=== PATIENT | male | born 1945 ===

== ENCOUNTER 2017-11-23 11:31 | Inpatient (IN) | payer MEDICARE ==
[2017-11-23 11:43] VITALS: BMI 30.9
--- NOTE | 2017-11-23 12:07 | ED PDOC ---
HPI: Abdomen Time Seen by Provider: 11/23/17 11:50 Chief Complaint (Nursing): Abdominal Pain History Per: Patient Onset/Duration Of Symptoms: Days (4) Current Symptoms Are (Timing): Still Present Severity: Moderate Location Of Pain/Discomfort: LLQ Quality Of Discomfort: Cramping Associated Symptoms: Fever, Nausea, Vomiting, Diarrhea. denies: Urinary Symptoms Exacerbating Factors: None Alleviating Factors: None Additional Complaint(s): LLQ abd pain assoc with nausea vomiting and diarrhea. x 4 days, Has had fever and chills. Past Medical History Vital Signs: Last Vital Signs Temp 97.9 F 11/25/17 23:40 Pulse 62 11/25/17 23:40 Resp 20 11/25/17 23:40 BP 114/71 11/25/17 23:40 Pulse Ox 98 11/26/17 07:14 - Medical History PMH: Asthma, Gastritis, HTN, Hypercholesterolemia Denies: Chronic Kidney Disease - Surgical History Surgical History: Cholecystectomy - Family History Family History: States: Unknown Family Hx - Home Medications Home Medications: Ambulatory Orders Medication Instructions Recorded Dorzolamide 2%/Timolol 0.5% 1 drop EACHEYE BID 04/02/16 [Cosopt 2%-0.5% Opht] Lisinopril [Zestril] 10 mg PO BID 04/02/16 Metformin HCl [Glucophage] 850 mg PO BID 05/11/16 Ergocalciferol (Vitamin D2) 50,000 unit PO QWK 11/23/17 [Vitamin D2] Latanoprost [Xalatan] 1 drop EACHEYE HS 11/23/17 Levothyroxine [Synthroid] 25 mcg PO DAILY 11/23/17 Metoprolol Succinate XL [Toprol XL] 50 mg PO DAILY 11/23/17 Zolpidem [Ambien] 10 mg PO HS 11/23/17 - Allergies Allergies/Adverse Reactions: Allergies Allergy/AdvReac Type Severity Reaction Status Date / Time No Known Allergies Allergy Verified 11/23/17 11:54 Review of Systems ROS Statement: Except As Marked, All Systems Reviewed And Found Negative Constitutional: Positive for: Fever Gastrointestinal: Positive for: Nausea, Vomiting, Abdominal Pain, Diarrhea Musculoskeletal: Positive for: Back Pain Physical Exam - Reviewed Nursing Documentation Reviewed: Yes Vital Signs Reviewed: Yes - Physical Exam Appears: Positive for: Non-toxic, No Acute Distress Head Exam: Positive for: ATRAUMATIC, NORMAL INSPECTION, NORMOCEPHALIC Skin: Positive for: Normal Color, Warm, DRY Eye Exam: Positive for: EOMI, Normal appearance, PERRL ENT: Positive for: Normal ENT Inspection Neck: Positive for: Normal, Painless ROM Cardiovascular/Chest: Positive for: Regular Rate, Rhythm Respiratory: Positive for: CNT, Normal Breath Sounds Gastrointestinal/Abdominal: Positive for: Soft, Tenderness (LLQ), Distended Back: Positive for: Normal Inspection Extremity: Positive for: Normal ROM Neurologic/Psych: Positive for: Alert, Oriented - Laboratory Results Result Diagrams: 11/24/17 06:05 11/25/17 15:34 - ECG O2 Sat by Pulse Oximetry: 98 Medical Decision Making Medical Decision Making: Time: 1321 CXR RESULTS FINDINGS: LUNGS: A 3 mm right lung base granuloma 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 However, summation of soft tissues can also simulate this appearance due to the overlying anterior right 6th and posterior right 9th rib No more denser consolidation seen. PLEURA: No significant pleural effusion identified. No pneumothorax apparent. CARDIOVASCULAR: Minimal cardiomegaly. Aortic knob calcification OSSEOUS STRUCTURES: Thoracic spondylosis. VISUALIZED UPPER ABDOMEN: Right upper quadrant cholecystectomy clips OTHER FINDINGS: None. IMPRESSION: Vague and subtle mall opacity -right lung base - a subtle patchy infiltrate versus summation effects are considerations. No more dense consolidation seen. Clinical follow-up recommended. Follow-up chest x-ray in 4 weeks with bilateral shallow obliques may be helpful in further clarification. Noncontrast CT chest would be more sensitive. Stable since 2015 benign 3 mm right lung base granuloma Disposition - Clinical Impression Clinical Impression: Abdominal pain - Patient ED Disposition Is Patient to be Admitted: Transfer of Care - Disposition Disposition: Transfer of Care Disposition Time: 15:00 Condition: FAIR Patient Signed Over To: Isabela Barreto
[2017-11-23 12:57] LABS: BASO % 0.4 % (0.0-2.0); EOS % 0.1 % (0.0-4.0); HEMOGLOBIN 16.7 g/dL (12.0-18.0); LYMPH # 0.6 K/uL (1.0-4.3); LYMPH % 12.2 % (20.0-40.0); MEAN CORPUSCULAR HEMOGLOBIN 31.3 pg (27.0-31.0); MEAN CORPUSCULAR HGB CONC 34.4 g/dL (33.0-37.0); MEAN PLATELET VOLUME 9.8 fl (7.2-11.7); MONO # 0.4 K/uL (0.0-0.8); NEUT % 80.3 % (50.0-75.0); NRBC % 0.1 % (0.0-0.0); RBC 5.32 Mil/uL (4.40-5.90); RED CELL DISTRIBUTION WIDTH 14.5 % (11.5-14.5)
[2017-11-23 12:58] LABS: ALB/GLOB RATIO 1.3 (1.0-2.1); ALBUMIN 4.5 g/dL (3.5-5.0); ALT/SGPT 41 U/L (21-72); AST/SGOT 58 U/L (17-59); BLOOD UREA NITROGEN 17 mg/dl (9-20); CALCIUM 8.7 mg/dL (8.4-10.2); GFR NON-AFRICAN AMERICAN > 60; MEAN CELL VOLUME 91.2 fl (80.0-94.0)
--- NOTE | 2017-11-23 13:24 | RAD ---
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 However, summation of soft tissues can also simulate this appearance due to the overlying anterior right 6th and posterior right 9th rib No more denser consolidation seen. PLEURA: No significant pleural effusion identified. No pneumothorax apparent. CARDIOVASCULAR: Minimal cardiomegaly. Aortic knob calcification OSSEOUS STRUCTURES: Thoracic spondylosis. VISUALIZED UPPER ABDOMEN: Right upper quadrant cholecystectomy clips OTHER FINDINGS: None. IMPRESSION: Vague and subtle mall opacity -right lung base - a subtle patchy infiltrate versus summation effects are considerations. No more dense consolidation seen. Clinical follow-up recommended. Follow-up chest x-ray in 4 weeks with bilateral shallow obliques may be helpful in further clarification. Noncontrast CT chest would be more sensitive. Stable since 2014 benign 3 mm right lung base granuloma
[2017-11-23] MEDS ORDERED: Sodium Chloride 0.9% 50 ML IV ONE (13:45)
[2017-11-23] MEDS ORDERED: Iohexol 300 100 ML IJ ONE (13:45)
[2017-11-23] MEDS ORDERED: Potassium Chloride 20 mEq ER Tab PO ONE ×3 (14:16→20:36)
[2017-11-23] MEDS ORDERED: Piperacillin/Tazobact 3.375 GM in Sodium Chloride 0.9% 100 ML IVPB STA (14:55)
--- NOTE | 2017-11-23 15:04 | ED PDOC ---
- Laboratory Results Result Diagrams: 11/24/17 06:05 11/26/17 05:30 - ECG O2 Sat by Pulse Oximetry: 98 Medical Decision Making Medical Decision Making: Pt endorsed to me by Dr. Zaidi pending CT results. Dr. Zaidi initiated workup and started antibiotics. Most likely to be admitted. CT results show patient with colitis and proctitis. Pt already started on IV antibiotics. Spoke wiht Dr. Dhaliwal and tapan to be admitted to the hospitalist. Pt aware of admission and comfortable at this time. Disposition - Clinical Impression Clinical Impression: Abdominal pain, Colitis - POA Present On Arrival: None - Disposition Disposition: Admitted as In-Patient Disposition Time: 16:56 Condition: FAIR
--- NOTE | 2017-11-23 15:19 | CT ---
Date of service: 11/23/2017 PROCEDURE: CT Abdomen and Pelvis with contrast HISTORY: Abdominal pain COMPARISON: 04/02/2016. TECHNIQUE: CT scan of the abdomen and pelvis was performed after administration of intravenous contrast. Oral contrast was not administered. Coronal and sagittal reformatted images were obtained. Contrast dose: 96 cc Omnipaque Radiation dose: Total exam DLP = 553.01 mGy-cm. This CT exam was performed using one or more of the following dose reduction techniques: Automated exposure control, adjustment of the mA and/or kV according to patient size, and/or use of iterative reconstruction technique. FINDINGS: LOWER THORAX: There is a small calcified granuloma in the right middle lobe. The lung bases are clear. LIVER: Diffuse fatty liver. No gross lesion or ductal dilatation. GALLBLADDER AND BILE DUCTS: Surgically absent. PANCREAS: Normal in size with homogeneous enhancement. No gross lesion or ductal dilatation. SPLEEN: Normal in size and appearance. ADRENALS: No discrete nodule. KIDNEYS AND URETERS: Normal in size with homogeneous enhancement. No hydronephrosis. No solid mass. VASCULATURE: No aortic aneurysm. BOWEL: The small bowel loops are normal in caliber. There is fluid in the colon and rectum with diffuse circumferential mural thickening and enhancement. No bowel obstruction. APPENDIX: Normal appendix. PERITONEUM: No free fluid. No free air. LYMPH NODES: No enlarged lymph nodes. BLADDER: Unremarkable. REPRODUCTIVE: Mild enlargement of the prostate gland. Please correlate with PSA levels. BONES: No acute fracture. Bilateral pars interarticularis defects at L4 with grade 1 anterior listhesis of L4 on L5. OTHER FINDINGS: None. IMPRESSION: Findings are most compatible with acute nonspecific infectious/ inflammatory colitis and proctitis. No bowel obstruction. Hepatic steatosis.
[2017-11-23] MEDS ORDERED: Vancomycin 1 g Inj ONE (16:02)
[2017-11-23] MEDS ORDERED: Piperacillin/Tazobact 3.375 gm Inj IVPB ONE (16:02)
--- NOTE | 2017-11-23 17:00 | CP.PCM.HP ---
History of Present Illness - History of Present Illness History of Present Illness: CC: stomach pain HPI: 72 year old male PMH HTN, HLD, hypothyroid, NIDDM2 presented to the ED with a 4 day history of worsening moderate sharp LLQ abdominal pain associated with mild melena, nausea, and NBNB emesis. Patient was found to have colitis and proctitis on CTAP. Given Vanc and Zosyn in ED. No WBC, was febrile 101.2, HD stable. No acute distress. ROS: per HPI all other systems reviewed and negative. Present on Admission - Present on Admission Any Indicators Present on Admission: No Past Patient History - Past Medical History & Family History Past Medical History?: Yes - Past Social History Smoking Status: Never Smoked - CARDIAC Hx Hypercholesterolemia: Yes Hx Hypertension: Yes - PULMONARY Hx Asthma: Yes - NEUROLOGICAL Hx Neurological Disorder: No - HEENT Hx HEENT Problems: No - RENAL Hx Chronic Kidney Disease: No - ENDOCRINE/METABOLIC Hx Endocrine Disorders: Yes Hx Diabetes Mellitus Type 2: Yes - HEMATOLOGICAL/ONCOLOGICAL Hx Blood Disorders: No - INTEGUMENTARY Hx Dermatological Problems: No - MUSCULOSKELETAL/RHEUMATOLOGICAL Hx Musculoskeletal Disorders: No - GASTROINTESTINAL Hx Gastritis: Yes - GENITOURINARY/GYNECOLOGICAL Hx Genitourinary Disorders: Yes Hx Urinary Tract Infection: Yes - PSYCHIATRIC Hx Psychophysiologic Disorder: No Hx Substance Use: No - SURGICAL HISTORY Hx Cholecystectomy: Yes - ANESTHESIA Hx Anesthesia: Yes Hx Anesthesia Reactions: No Hx Malignant Hyperthermia: No Meds Allergies/Adverse Reactions: Allergies Allergy/AdvReac Type Severity Reaction Status Date / Time No Known Allergies Allergy Verified 11/23/17 11:54 Physical Exam - Constitutional Additional comments: Vitals Reviewed GEN: WDWN, alert, cooperative HEENT: NCAT, PERRL, EOMI HEART: RRR, +S1S2, NO MRG LUNG: CTAB, NO WRR ABD: soft, tender LLQ, ND, No HSM, No masses EXT: normal pedal pulses NEURO: awake, alert SKIN: warm, dry PSYCH: normal mood, normal affect Results - Vital Signs Recent Vital Signs: Last Vital Signs Temp 99.1 F 11/23/17 16:48 Pulse 88 11/23/17 16:48 Resp 16 11/23/17 16:48 BP 158/77 H 11/23/17 11:41 Pulse Ox 98 11/23/17 16:48 - Labs Result Diagrams: 11/23/17 12:40 11/23/17 12:40 Labs: Laboratory Results - last 24 hr 11/23/17 11/23/17 11/23/17 12:15 12:40 12:40 WBC 5.0 RBC 5.32 Hgb 16.7 Hct 48.6 MCV 91.2 D MCH 31.3 H MCHC 34.4 RDW 14.5 Plt Count 142 MPV 9.8 Neut % (Auto) 80.3 H Lymph % (Auto) 12.2 L [place] % (Auto) 7.0 Eos % (Auto) 0.1 Baso % (Auto) 0.4 Neut # (Auto) 4.0 Lymph # (Auto) 0.6 L [place] # (Auto) 0.4 Eos # (Auto) 0.0 Baso # (Auto) 0.0 Sodium 132 Potassium 3.2 L Chloride 92 L Carbon Dioxide 25 Anion Gap 18 BUN 17 Creatinine 0.9 Est GFR ( Amer) > 60 Est GFR (Non-Af Amer) > 60 POC Glucose (mg/dL) 121 H Random Glucose 133 H Calcium 8.7 Total Bilirubin 1.6 H AST 58 ALT 41 Alkaline Phosphatase 45 Total Protein 8.0 Albumin 4.5 Globulin 3.5 Albumin/Globulin Ratio 1.3 Assessment & Plan - Assessment and Plan (Free Text) Plan: 72 year old male PMH HTN, HLD, hypothyroid, NIDDM2 presented to the ED with a 4 day history of worsening moderate sharp LLQ abdominal pain associated with mild melena, nausea, and NBNB emesis. Patient was found to have colitis and prostatitis on CTAP. Given Vanc and Zosyn in ED. No WBC, was febrile 101.2, HD stable. No acute distress. Colitis with mild melena Prostatitis afebrile now, pain controlled, no WBC, HD stable H/H 16.7/48.6, likely hemeconcentrated Tbili 1.6 cont with Cipro and Flagyl Zofran PRN nausea NPO maintenance fluids D5 1/2 NS + 20 KCl @ 100CC/HR monitor on medsurg Hypokalemia - 3.2 repleted checking Mg HTN HLD continue Lisinopril and Metoprolol continue statin Hypothyroid continue Synthroid DM Accuchecks ISS [id number] SCDs pt complained of melena
[2017-11-23] MEDS ORDERED: Ergocalciferol 50,000 Intl Units Cap PO SCH (17:45)
[2017-11-23] MEDS: Insulin Lispro (humaLOG) 100 Units/ml Inj SC SCH (22:07)
[2017-11-23] MEDS: Latanoprost 0.005% Opht SOUTION OU SCH (22:18)
[2017-11-23] MEDS: Ciprofloxacin 400mg/200ml D5W 400 MG/200 ML BAG IVPB SCH (22:19)
[2017-11-23] MEDS: Potassium Ch 20mEq in D5-1/2NS 1,000 ML IV SCH (22:19)
--- NOTE | 2017-11-23 22:41 | CARD ---
APPROVED REPORT Date of service: 11/23/2017 EKG Measurement Heart [id number] <Conclusion> Normal sinus rhythm ST & T wave abnormality, consider lateral ischemia Abnormal ECG
[2017-11-24] MEDS: metroNIDAZOLE 500mg/100ml NS 100 ML IVPB SCH ×3 (00:39→17:27)
[2017-11-24] MEDS: Potassium Ch 20mEq in D5-1/2NS 1,000 ML IV SCH ×2 (03:30→17:34)
[2017-11-24] MEDS ORDERED: Pneumococcal 23-Valent Vaccine IM ONE ×2 (06:00→09:00)
[2017-11-24 06:16] LABS: BASO % 0.2 % (0.0-2.0); HEMOGLOBIN 16.7 g/dL (12.0-18.0); LYMPH # 0.6 K/uL (1.0-4.3); LYMPH % 9.6 % (20.0-40.0); MEAN CELL VOLUME 91.2 fl (80.0-94.0); MEAN CORPUSCULAR HEMOGLOBIN 31.1 pg (27.0-31.0); MEAN CORPUSCULAR HGB CONC 34.1 g/dL (33.0-37.0); MEAN PLATELET VOLUME 9.4 fl (7.2-11.7); MONO # 0.4 K/uL (0.0-0.8); MONO % 6.1 % (0.0-10.0); NEUT # 5.3 K/uL (1.8-7.0); NEUT % 84.1 % (50.0-75.0); NRBC % 0.1 % (0.0-0.0); PLATELET COUNT 121 K/uL (130-400); RBC 5.37 Mil/uL (4.40-5.90); RED CELL DISTRIBUTION WIDTH 14.5 % (11.5-14.5); WHITE BLOOD COUNT 6.3 K/uL (4.8-10.8)
[2017-11-24] MEDS: Levothyroxine 25 MCG TAB PO SCH (06:23)
[2017-11-24 06:34] LABS: SQUAMOUS EPITHIAL < 1 /hpf (0-5); URINE BILIRUBIN NEGATIVE (NEGATIVE); URINE BLOOD NEGATIVE (NEGATIVE); URINE CLARITY SLIGHTY-CLOUDY (Clear); URINE COLOR AMBER (YELLOW); URINE GLUCOSE (UA) NEG (Normal); URINE LEUKOCYTE ESTERASE NEG Leu/uL (Negative); URINE PROTEIN 100 mg/dL (NEGATIVE); URINE UROBILINOGEN 0.2-1.0 mg/dL (0.2-1.0)
[2017-11-24 07:05] LABS: BLOOD UREA NITROGEN 19 mg/dl (9-20); CALCIUM 8.3 mg/dL (8.4-10.2); GFR NON-AFRICAN AMERICAN > 60
[2017-11-24] MEDS: Insulin Lispro (humaLOG) 100 Units/ml Inj SC SCH ×4 (07:14→22:00)
[2017-11-24 08:16] LABS: BANDS 3 % (0-2); LYMPHOCYTE 12 % (20-50); MONOCYTE 8 % (0-10); NEUTROPHIL 71 % (42-75); REACTIVE LYMPHOCYTES 6 % (0-0); TOTAL CELLS COUNTED 100
[2017-11-24 08:17] LABS: ANISOCYTOSIS SLIGHT; LARGE PLATELETS PRESENT; PLATELET ESTIMATE SLIGHTLY DECREASED (NORMAL)
[2017-11-24] MEDS ORDERED: Patient's Own Med (Dorzolamide 2%/Timolol 0.5% [Cosopt 2%-0.5% Opht] 1 DROP) EACHEYE SCH (09:00)
[2017-11-24] MEDS: Dorzolamide 2% Ophth Soln OU SCH ×2 (09:12→17:28)
[2017-11-24] MEDS: Metoprolol Succinate 50 mg XL Tab PO SCH (09:17)
[2017-11-24] MEDS: Ciprofloxacin 400mg/200ml D5W 400 MG/200 ML BAG IVPB SCH ×2 (12:51→20:53)
--- NOTE | 2017-11-24 15:50 | CP.PCM.PN ---
Subjective - Date & Time of Evaluation Date of Evaluation: 11/24/17 Time of Evaluation: 10:45 - Subjective Subjective: Patient seen and examined. Still having diarrhea (11X) and abdominal pain. Objective - Vital Signs/Intake and Output Vital Signs (last 24 hours): Temp Pulse Resp BP Pulse Ox 100.0 F H 81 20 142/82 95 11/24/17 15:42 11/24/17 15:42 11/24/17 15:42 11/24/17 15:42 11/24/17 15:42 - Medications Medications: Current Medications Acetaminophen (Tylenol 325mg Tab) 650 mg PO Q6 PRN PRN Reason: Fever >100.4 F Last Admin: 11/24/17 06:22 Dose: 650 mg Dorzolamide HCl (Trusopt) 1 drop OU BID [facility] Last Admin: 11/24/17 09:12 Dose: 1 drop Ergocalciferol (Drisdol 50,000 Intl Units Cap) 1 cap PO QWK [facility] Ciprofloxacin (Cipro 400mg/200ml Dsw) 400 mg in 200 mls @ 200 mls/hr IVPB Q12 [facility] PRN Reason: Protocol Last Admin: 11/24/17 12:51 Dose: 200 mls/hr Potassium Chloride/Dextrose/Sod Cl (Potassium Chl 20 Meq In D5-1/2ns) 1,000 mls @ 100 mls/hr IV .Q10H [facility] Stop: 11/24/17 17:28 Last Admin: 11/24/17 03:30 Dose: Not Given Metronidazole (Flagyl 500mg/100ml Ns) 100 mls @ 100 mls/hr IVPB Q8 [facility] PRN Reason: Protocol Last Admin: 11/24/17 12:50 Dose: 100 mls/hr Insulin Human Lispro (Humalog) 0 units SC ACHS [facility] PRN Reason: Protocol Last Admin: 11/24/17 12:52 Dose: 2 units Latanoprost (Xalatan Opht) 1 drop OU HS [facility] Last Admin: 11/23/17 22:18 Dose: 1 drop Levothyroxine Sodium (Synthroid) 25 mcg PO DAILY@0630 [facility] Last Admin: 11/24/17 06:23 Dose: 25 mcg Lisinopril (Zestril) 10 mg PO BID [facility] Last Admin: 11/24/17 09:10 Dose: Not Given Metoprolol Succinate (Toprol Xl) 50 mg PO DAILY [facility] Last Admin: 11/24/17 09:17 Dose: Not Given Morphine Sulfate (Morphine) 2 mg IVP Q4 PRN PRN Reason: Pain, moderate (4-7) Last Admin: 11/24/17 14:40 Dose: 2 mg Ondansetron HCl (Zofran Inj) 4 mg IVP Q6 PRN PRN Reason: Nausea/Vomiting Timolol Maleate (Timoptic 0.5% Ophth Soln) 1 drop OU BID [facility] Last Admin: 11/24/17 09:11 Dose: 1 drop Zolpidem Tartrate (Ambien) 5 mg PO HS [facility] Last Admin: 11/23/17 22:02 Dose: 5 mg - Labs Labs: 11/24/17 06:05 11/24/17 06:05 - Constitutional Appears: No Acute Distress - Head Exam Head Exam: ATRAUMATIC - Eye Exam Eye Exam: absent: Scleral icterus - ENT Exam ENT Exam: Mucous Membranes Moist - Neck Exam Neck Exam: absent: Meningismus - Respiratory Exam Respiratory Exam: absent: Rales, Rhonchi, Wheezes, Respiratory Distress - Cardiovascular Exam Cardiovascular Exam: REGULAR RHYTHM, +S1, +S2 - GI/Abdominal Exam GI & Abdominal Exam: Soft. absent: Tenderness - Rectal Exam Rectal Exam: Deferred - Neurological Exam Neurological Exam: Alert, Oriented x3 - Psychiatric Exam Psychiatric exam: Normal Affect - Skin Skin Exam: Dry, Intact Assessment and Plan - Assessment and Plan (Free Text) Assessment: 72 yo male with history of HTN, HLD, Hypothyroid and DM2 admitted because of LLQ pain associated with diarrhea, nausea, vomiting and fever/chills. 1. Colitis had low grade fever earlier continue Cipro and Flagyl GI consult with Dr Lewis 2. Hypokalemia depleted because of loss from vomiting and diarrhea 3. HTN BP controlled continue Lisinopril and Metoprolol 4. Hypothyroid continue Synthroid 5. DM2 accuchek ACHS with low Lispro coverage
[2017-11-24] MEDS: Latanoprost 0.005% Opht SOUTION OU SCH (22:06)
[2017-11-25] MEDS: metroNIDAZOLE 500mg/100ml NS 100 ML IVPB SCH ×3 (00:10→16:32)
[2017-11-25] MEDS: Levothyroxine 25 MCG TAB PO SCH (06:02)
[2017-11-25 08:48] LABS: INR 1.1; PROTHROMBIN TIME 11.9 Seconds (9.8-13.1)
[2017-11-25] MEDS: Insulin Lispro (humaLOG) 100 Units/ml Inj SC SCH ×4 (09:12→22:30)
[2017-11-25] MEDS: Metoprolol Succinate 50 mg XL Tab PO SCH (09:14)
[2017-11-25] MEDS: Dorzolamide 2% Ophth Soln OU SCH ×2 (09:15→16:32)
[2017-11-25] MEDS: Ciprofloxacin 400mg/200ml D5W 400 MG/200 ML BAG IVPB SCH ×2 (10:50→21:28)
--- NOTE | 2017-11-25 12:20 | CP.PCM.CON ---
<Efraín Baca - Last Filed: 11/25/17 12:14> History of Present Illness - History of Present Illness History of Present Illness: GI Fellow PGY4, Consult note. Sumeet Levy is a pleasant slovenian speaking only male with history of BPH, DM, HTN and presenting with 4 days of abdominal pain, diarrhea, vomiting. Patient states he felt normal until 4 days ago when he developed diffuse abdominal pain 8/10 sharp associated with green diarrhea ~5 episodes per day, no bloody. He also has non-bloody, yellow vomiting as well. Patient was having fevers and on admission CT showed diffuse colitis concerning for inflammatory/ infectious etiology. He has had this finding before 2 years ago and EGD/CSPY was negative. CT also showed diffuse fatty liver. Cipro and flagyl was started. He also complains of dysuria. PMHx - see above PSHx - cholecystectomy. EGD/CSPY 2017. Prostate biopsy, reported negative per patient. FMHx - non-contributory. SocHx - No smoking or alcohol abuse. 12pt ROS completed and negative except for above. Past Patient History - Past Medical History & Family History Past Medical History?: Yes - Past Social History Smoking Status: Never Smoked - CARDIAC Hx Hypercholesterolemia: Yes Hx Hypertension: Yes - PULMONARY Hx Asthma: Yes - NEUROLOGICAL Hx Neurological Disorder: No - HEENT Hx HEENT Problems: No - RENAL Hx Chronic Kidney Disease: No - ENDOCRINE/METABOLIC Hx Endocrine Disorders: Yes Hx Diabetes Mellitus Type 2: Yes Hx Hypothyroidism: Yes - HEMATOLOGICAL/ONCOLOGICAL Hx Blood Disorders: No - INTEGUMENTARY Hx Dermatological Problems: No - MUSCULOSKELETAL/RHEUMATOLOGICAL Hx Musculoskeletal Disorders: No Hx Falls: No - GASTROINTESTINAL Hx Gastritis: Yes - GENITOURINARY/GYNECOLOGICAL Hx Genitourinary Disorders: Yes Hx Urinary Tract Infection: Yes - PSYCHIATRIC Hx Psychophysiologic Disorder: No Hx Substance Use: No - SURGICAL HISTORY Hx Cholecystectomy: Yes - ANESTHESIA Hx Anesthesia: Yes Hx Anesthesia Reactions: No Hx Malignant Hyperthermia: No Meds Allergies/Adverse Reactions: Allergies Allergy/AdvReac Type Severity Reaction Status Date / Time No Known Allergies Allergy Verified 11/23/17 11:54 - Medications Medications: Current Medications Acetaminophen (Tylenol 325mg Tab) 650 mg PO Q6 PRN PRN Reason: Fever >100.4 F Last Admin: 11/24/17 06:22 Dose: 650 mg Dorzolamide HCl (Trusopt) 1 drop OU BID [facility] Last Admin: 11/25/17 09:15 Dose: 1 drop Ergocalciferol (Drisdol 50,000 Intl Units Cap) 1 cap PO QWK [facility] Ciprofloxacin (Cipro 400mg/200ml Dsw) 400 mg in 200 mls @ 200 mls/hr IVPB Q12 [facility] PRN Reason: Protocol Last Admin: 11/25/17 10:50 Dose: 200 mls/hr Metronidazole (Flagyl 500mg/100ml Ns) 100 mls @ 100 mls/hr IVPB Q8 [facility] PRN Reason: Protocol Last Admin: 11/25/17 09:13 Dose: 100 mls/hr Insulin Human Lispro (Humalog) 0 units SC ACHS [facility] PRN Reason: Protocol Last Admin: 11/25/17 09:12 Dose: 2 units Latanoprost (Xalatan Opht) 1 drop OU [facility] Last Admin: 11/24/17 22:06 Dose: Not Given Levothyroxine Sodium (Synthroid) 25 mcg PO DAILY@0630 [facility] Last Admin: 11/25/17 06:02 Dose: 25 mcg Lisinopril (Zestril) 10 mg PO BID [facility] Last Admin: 11/25/17 09:15 Dose: 10 mg Metoprolol Succinate (Toprol Xl) 50 mg PO DAILY [facility] Last Admin: 11/25/17 09:14 Dose: 50 mg Morphine Sulfate (Morphine) 2 mg IVP Q4 PRN PRN Reason: Pain, moderate (4-7) Last Admin: 11/25/17 00:13 Dose: 2 mg Ondansetron HCl (Zofran Inj) 4 mg IVP Q6 PRN PRN Reason: Nausea/Vomiting Timolol Maleate (Timoptic 0.5% Ophth Soln) 1 drop OU BID [facility] Last Admin: 11/25/17 09:13 Dose: 1 drop Zolpidem Tartrate (Ambien) 5 mg PO [facility] Last Admin: 11/24/17 21:04 Dose: 5 mg Physical Exam - Constitutional Appears: No Acute Distress, Other (Fatigued) - Eye Exam Eye Exam: EOMI - ENT Exam ENT Exam: Mucous Membranes Moist, Normal Exam - Respiratory Exam Respiratory Exam: Clear to Auscultation Bilateral, NORMAL BREATHING PATTERN. absent: Wheezes - Cardiovascular Exam Cardiovascular Exam: REGULAR RHYTHM, +S1, +S2 - GI/Abdominal Exam GI & Abdominal Exam: Normal Bowel Sounds, Soft, Tenderness. absent: Mass - Rectal Exam Additional comments: perianal erythema present. Rectal exam was terminated early due to significant tenderness. - Extremities Exam Extremities exam: Positive for: normal inspection - Neurological Exam Neurological exam: Alert, CN II-XII Intact, Oriented x3 - Psychiatric Exam Psychiatric exam: Normal Affect, Normal Mood - Skin Skin Exam: Dry, Normal Color Results - Vital Signs Recent Vital Signs: Last Vital Signs Temp 97.7 F 11/25/17 07:48 Pulse 65 11/25/17 09:15 Resp 20 11/25/17 07:48 BP 117/76 11/25/17 09:15 Pulse Ox 100 11/25/17 07:48 - Labs Result Diagrams: 11/24/17 06:05 11/24/17 06:05 Labs: Laboratory Results - last 24 hr 11/24/17 11/24/17 11/24/17 15:26 16:19 20:58 PT INR POC Glucose (mg/dL) 137 H 139 H Prostate Specific Ag 7.70 H C. difficile Ag & Toxin 11/25/17 11/25/17 11/25/17 05:42 06:10 08:36 PT 11.9 INR 1.1 POC Glucose (mg/dL) 156 H Prostate Specific Ag C. difficile Ag & Toxin Negative 11/25/17 11:04 PT INR POC Glucose (mg/dL) 129 H Prostate Specific Ag C. difficile Ag & Toxin Assessment & Plan - Assessment and Plan (Free Text) Assessment: 72M with acute diarrhea, abdominal pain, vomiting and fever. #Abdominal pain #Diarrhea #Vomiting #Sepsis with GNR, possible prostatitis. #DM #HTN #BPH PLAN: -Continue IV abx for sepsis. IV flagyl will cover C.diff. Continue to monitor for worsening disease severity as he may need oral vanco if C. diff not ruled out. -Agree with checking c. diff, stool culture, ova/parasites -Recommend antiemetics for nausea, Zofran. -Recommend IV hydration as patient is not eating much -NPO except meds and ice chips while vomiting -No plan for endoscopic procedures at this time - Date & Time Date: 11/25/17 Time: 12:24 <Mendoza Liang Y - Last Filed: 11/25/17 13:03> Meds - Medications Medications: Current Medications Acetaminophen (Tylenol 325mg Tab) 650 mg PO Q6 PRN PRN Reason: Fever >100.4 F Last Admin: 11/24/17 06:22 Dose: 650 mg Dorzolamide HCl (Trusopt) 1 drop OU BID [facility] Last Admin: 11/25/17 09:15 Dose: 1 drop Ergocalciferol (Drisdol 50,000 Intl Units Cap) 1 cap PO QWK [facility] Ciprofloxacin (Cipro 400mg/200ml Dsw) 400 mg in 200 mls @ 200 mls/hr IVPB Q12 [facility] PRN Reason: Protocol Last Admin: 11/25/17 10:50 Dose: 200 mls/hr Metronidazole (Flagyl 500mg/100ml Ns) 100 mls @ 100 mls/hr IVPB Q8 [facility] PRN Reason: Protocol Last Admin: 11/25/17 09:13 Dose: 100 mls/hr Insulin Human Lispro (Humalog) 0 units SC ACHS [facility] PRN Reason: Protocol Last Admin: 11/25/17 09:12 Dose: 2 units Latanoprost (Xalatan Opht) 1 drop OU [facility] Last Admin: 11/24/17 22:06 Dose: Not Given Levothyroxine Sodium (Synthroid) 25 mcg PO DAILY@0630 [facility] Last Admin: 11/25/17 06:02 Dose: 25 mcg Lisinopril (Zestril) 10 mg PO BID [facility] Last Admin: 11/25/17 09:15 Dose: 10 mg Metoprolol Succinate (Toprol Xl) 50 mg PO DAILY [facility] Last Admin: 11/25/17 09:14 Dose: 50 mg Morphine Sulfate (Morphine) 2 mg IVP Q4 PRN PRN Reason: Pain, moderate (4-7) Last Admin: 11/25/17 00:13 Dose: 2 mg Ondansetron HCl (Zofran Inj) 4 mg IVP Q6 PRN PRN Reason: Nausea/Vomiting Timolol Maleate (Timoptic 0.5% Ophth Soln) 1 drop OU BID [facility] Last Admin: 11/25/17 09:13 Dose: 1 drop Zolpidem Tartrate (Ambien) 5 mg PO HS [facility] Last Admin: 11/24/17 21:04 Dose: 5 mg Results - Vital Signs Recent Vital Signs: Last Vital Signs Temp 97.7 F 11/25/17 07:48 Pulse 65 11/25/17 09:15 Resp 20 11/25/17 07:48 BP 117/76 11/25/17 09:15 Pulse Ox 100 11/25/17 07:48 - Labs Result Diagrams: 11/24/17 06:05 11/24/17 06:05 Labs: Laboratory Results - last 24 hr 11/24/17 11/24/17 11/24/17 15:26 16:19 20:58 PT INR POC Glucose (mg/dL) 137 H 139 H Prostate Specific Ag 7.70 H C. difficile Ag & Toxin 11/25/17 11/25/17 11/25/17 05:42 06:10 08:36 PT 11.9 INR 1.1 POC Glucose (mg/dL) 156 H Prostate Specific Ag C. difficile Ag & Toxin Negative 11/25/17 11:04 PT INR POC Glucose (mg/dL) 129 H Prostate Specific Ag C. difficile Ag & Toxin Attending/Attestation - Attestation I have personally seen and examined this patient.: Yes I have fully participated in the care of the patient.: Yes I have reviewed all pertinent clinical information: Yes Notes (Text): 11/25/17 12:57 I have seen and examined patient with GI fellow. Agree with above documentation with the following additions. In brief, this is a 72 year old male with history of DM, HTN, BPH who presents to hospital with complaints of progressive abdominal pain and nausea for the past 4 days. He describes diffuse abdominal pain, 8/10 intensity that is associated with multiple daily episodes of loose bowel movements (up to 4-5 times). Patient also reports significant dysuria with difficulty initiating urination along with sharp rectal pain. He feels nauseous but denies vomiting, chills, blood in stool. He had an EGD/colonoscopy last year which did not show significant findings. Additional physical examination: Abdomen: no palpable hepato/splenomegaly DM / HTN BPH Abdominal pain, ?prostatitis CT imaging reviewed by me showing pancolitis of unclear etiology - Liquid diet as tolerated - Continue with antibiotic therapy - Obtain stool studies - Consider empiric coverage for c-difficile with PO Vancomycin if clinical condition remains unchanged - Obtain blood culture - Will continue to monitor patient clinical course
[2017-11-25] MEDS: Lactated Ringer's 1,000 ML IV SCH ×2 (13:15→21:35)
--- NOTE | 2017-11-25 15:05 | CP.PCM.PN ---
Subjective - Date & Time of Evaluation Date of Evaluation: 11/25/17 Time of Evaluation: 10:30 - Subjective Subjective: Patient seen and examined. Continue to have diarrhea associated with abdominal pain and nausea and vomiting. Objective - Vital Signs/Intake and Output Vital Signs (last 24 hours): Temp Pulse Resp BP Pulse Ox 97.7 F 65 20 117/76 100 11/25/17 07:48 11/25/17 09:15 11/25/17 07:48 11/25/17 09:15 11/25/17 07:48 - Medications Medications: Current Medications Acetaminophen (Tylenol 325mg Tab) 650 mg PO Q6 PRN PRN Reason: Fever >100.4 F Last Admin: 11/24/17 06:22 Dose: 650 mg Dorzolamide HCl (Trusopt) 1 drop OU BID [facility] Last Admin: 11/25/17 09:15 Dose: 1 drop Ergocalciferol (Drisdol 50,000 Intl Units Cap) 1 cap PO QWK [facility] Ciprofloxacin (Cipro 400mg/200ml Dsw) 400 mg in 200 mls @ 200 mls/hr IVPB Q12 [facility] PRN Reason: Protocol Last Admin: 11/25/17 10:50 Dose: 200 mls/hr Metronidazole (Flagyl 500mg/100ml Ns) 100 mls @ 100 mls/hr IVPB Q8 [facility] PRN Reason: Protocol Last Admin: 11/25/17 09:13 Dose: 100 mls/hr Lactated Ringer's (Lactated Ringer's) 1,000 mls @ 125 mls/hr IV .Q8H [facility] Stop: 11/26/17 11:00 Last Admin: 11/25/17 13:15 Dose: 125 mls/hr Insulin Human Lispro (Humalog) 0 units SC ACHS [facility] PRN Reason: Protocol Last Admin: 11/25/17 11:30 Dose: Not Given Lactobacillus Acidophilus (Bacid Acidophilus) 1 cap PO BID [facility] Latanoprost (Xalatan Opht) 1 drop OU HS [facility] Last Admin: 11/24/17 22:06 Dose: Not Given Levothyroxine Sodium (Synthroid) 25 mcg PO DAILY@0630 [facility] Last Admin: 11/25/17 06:02 Dose: 25 mcg Lisinopril (Zestril) 10 mg PO BID [facility] Last Admin: 11/25/17 09:15 Dose: 10 mg Metoprolol Succinate (Toprol Xl) 50 mg PO DAILY [facility] Last Admin: 11/25/17 09:14 Dose: 50 mg Morphine Sulfate (Morphine) 2 mg IVP Q4 PRN PRN Reason: Pain, moderate (4-7) Last Admin: 11/25/17 00:13 Dose: 2 mg Ondansetron HCl (Zofran Inj) 8 mg IVP Q8 [facility] Timolol Maleate (Timoptic 0.5% Ophth Soln) 1 drop OU BID [facility] Last Admin: 11/25/17 09:13 Dose: 1 drop Zolpidem Tartrate (Ambien) 5 mg PO HS [facility] Last Admin: 11/24/17 21:04 Dose: 5 mg - Labs Labs: 11/24/17 06:05 11/24/17 06:05 PT 11.9 Seconds (9.8-13.1) 11/25/17 08:36 INR 1.1 11/25/17 08:36 - Constitutional Appears: No Acute Distress - Head Exam Head Exam: ATRAUMATIC - Eye Exam Eye Exam: absent: Scleral icterus - ENT Exam ENT Exam: Mucous Membranes Moist - Neck Exam Neck Exam: absent: Meningismus - Respiratory Exam Respiratory Exam: absent: Rales, Rhonchi, Wheezes, Respiratory Distress - Cardiovascular Exam Cardiovascular Exam: REGULAR RHYTHM, +S1, +S2 - GI/Abdominal Exam GI & Abdominal Exam: Soft. absent: Tenderness - Rectal Exam Rectal Exam: Deferred - Extremities Exam Extremities Exam: absent: Calf Tenderness, Pedal Edema - Back Exam Back Exam: absent: tenderness - Neurological Exam Neurological Exam: Alert, Oriented x3 - Psychiatric Exam Psychiatric exam: Normal Affect - Skin Skin Exam: Dry, Intact Assessment and Plan - Assessment and Plan (Free Text) Assessment: 72 yo male with history of HTN, HLD, Hypothyroid and DM2 admitted because of LLQ pain associated with diarrhea, nausea, vomiting and fever/chills. 1. Colitis continue to have diarrhea (5X) and vomting (2X) C dif antigen and toxin: negative continue IV Cipro and Flagyl GI consult with Dr Debbie cabrera 2. Hypokalemia depleted because of loss from vomiting and diarrhea MgSO4 2gm IV BMP 3. HTN BP controlled continue Lisinopril and Metoprolol 4. Hypothyroid continue Synthroid TSH 5. DM2 BS relatively controlled accuchek ACHS with low Lispro coverage
[2017-11-25] MEDS ORDERED: Magnesium Sulfate 2 gm/50 ml 2 GM/50 ML BAG IVPB ONE (15:15)
[2017-11-25 16:10] LABS: CALCIUM 8.6 mg/dL (8.4-10.2); GFR NON-AFRICAN AMERICAN > 60
[2017-11-25 16:18] LABS: BLOOD UREA NITROGEN 19 mg/dl (9-20)
[2017-11-25] MEDS: Lactobacillus Acidophilus 500 MU Cap PO SCH (16:47)
[2017-11-25] MEDS: Latanoprost 0.005% Opht SOUTION OU SCH (21:29)
[2017-11-26] MEDS: metroNIDAZOLE 500mg/100ml NS 100 ML IVPB SCH ×2 (00:52→09:28)
[2017-11-26] MEDS: Levothyroxine 50 MCG TAB PO SCH (06:54)
--- NOTE | 2017-11-26 07:56 | CP.PCM.PN ---
<Chester Medley - Last Filed: 11/26/17 08:30> Subjective - Date & Time of Evaluation Date of Evaluation: 11/26/17 Time of Evaluation: 07:30 - Subjective Subjective: PGY-4 GI Fellow Prog Note Pt lying in bed when seen this AM. States continues to have loose stools, about 4 last night and a few more this AM. Stools were green or yellow but last few have been black. Denies any N/V now, but states that he had one episode of yellow emesis yesterday AM. Abd pain is stable. 5 point ROS negative other than stated above Objective - Vital Signs/Intake and Output Vital Signs (last 24 hours): Temp Pulse Resp BP Pulse Ox 97.9 F 62 20 114/71 98 11/25/17 23:40 11/25/17 23:40 11/25/17 23:40 11/25/17 23:40 11/26/17 07:15 - Medications Medications: Current Medications Acetaminophen (Tylenol 325mg Tab) 650 mg PO Q6 PRN PRN Reason: Fever >100.4 F Last Admin: 11/24/17 06:22 Dose: 650 mg Dorzolamide HCl (Trusopt) 1 drop OU BID [facility] Last Admin: 11/25/17 16:32 Dose: 1 drop Ergocalciferol (Drisdol 50,000 Intl Units Cap) 1 cap PO QWK [facility] Ciprofloxacin (Cipro 400mg/200ml Dsw) 400 mg in 200 mls @ 200 mls/hr IVPB Q12 [facility] PRN Reason: Protocol Last Admin: 11/25/17 21:28 Dose: 200 mls/hr Metronidazole (Flagyl 500mg/100ml Ns) 100 mls @ 100 mls/hr IVPB Q8 [facility] PRN Reason: Protocol Last Admin: 11/26/17 00:52 Dose: 100 mls/hr Lactated Ringer's (Lactated Ringer's) 1,000 mls @ 125 mls/hr IV .Q8H [facility] Stop: 11/26/17 11:00 Last Admin: 11/25/17 21:35 Dose: Not Given Insulin Human Lispro (Humalog) 0 units SC ACHS [facility] PRN Reason: Protocol Last Admin: 11/25/17 22:30 Dose: Not Given Lactobacillus Acidophilus (Bacid Acidophilus) 1 cap PO BID [facility] Last Admin: 11/25/17 16:47 Dose: 1 cap Latanoprost (Xalatan Opht) 1 drop OU HS [facility] Last Admin: 11/25/17 21:29 Dose: 1 drop Levothyroxine Sodium (Synthroid) 50 mcg PO DAILY@0630 [facility] Last Admin: 11/26/17 06:54 Dose: 50 mcg Lisinopril (Zestril) 10 mg PO BID [facility] Last Admin: 11/25/17 16:41 Dose: 10 mg Metoprolol Succinate (Toprol Xl) 50 mg PO DAILY [facility] Last Admin: 11/25/17 09:14 Dose: 50 mg Morphine Sulfate (Morphine) 2 mg IVP Q4 PRN PRN Reason: Pain, moderate (4-7) Last Admin: 11/25/17 16:51 Dose: 2 mg Ondansetron HCl (Zofran Inj) 8 mg IVP Q8 [facility] Last Admin: 11/26/17 00:51 Dose: 8 mg Timolol Maleate (Timoptic 0.5% Oph Soln) 1 drop OU BID [facility] Last Admin: 11/25/17 16:32 Dose: 1 drop Zolpidem Tartrate (Ambien) 5 mg PO HS [facility] Last Admin: 11/25/17 21:31 Dose: 5 mg - Labs Labs: 11/24/17 06:05 11/25/17 15:34 PT 11.9 Seconds (9.8-13.1) 11/25/17 08:36 INR 1.1 11/25/17 08:36 - Constitutional Appears: Non-toxic, No Acute Distress - Head Exam Head Exam: ATRAUMATIC, NORMAL INSPECTION - Eye Exam Eye Exam: EOMI. absent: Conjunctival injection, Scleral icterus - Respiratory Exam Respiratory Exam: Clear to Ausculation Bilateral, NORMAL BREATHING PATTERN. absent: Wheezes - Cardiovascular Exam Cardiovascular Exam: REGULAR RHYTHM, RRR - GI/Abdominal Exam GI & Abdominal Exam: Guarding (mildy in RUQ), Soft, Tenderness (diffusely), Normal Bowel Sounds. absent: Bruit, Distended, Firm, Rigid Assessment and Plan - Assessment and Plan (Free Text) Assessment: 72M with acute diarrhea, abdominal pain, vomiting and fever. #Abdominal pain #Diarrhea #Vomiting #Sepsis with GNR, possible prostatitis. #DM #HTN #BPH Plan: -Continue IV abx for sepsis. Cont IV Metronidazole -Start PO Vancomycin for suspected C diff (plan to repeat test today) as concerned for possible false negative given persistent symptoms -F/u stool culture, ova/parasites -Recommend antiemetics for nausea, Zofran. -Recommend IV hydration as patient is not eating much -CLD -No plan for endoscopic procedures at this time <Mendoza Liang - Last Filed: 11/26/17 08:36> Objective - Vital Signs/Intake and Output Vital Signs (last 24 hours): Temp Pulse Resp BP Pulse Ox 97.7 F 60 20 117/71 99 11/26/17 08:24 11/26/17 08:24 11/26/17 08:24 11/26/17 08:24 11/26/17 08:24 - Medications Medications: Current Medications Acetaminophen (Tylenol 325mg Tab) 650 mg PO Q6 PRN PRN Reason: Fever >100.4 F Last Admin: 11/24/17 06:22 Dose: 650 mg Dorzolamide HCl (Trusopt) 1 drop OU BID [facility] Last Admin: 11/25/17 16:32 Dose: 1 drop Ergocalciferol (Drisdol 50,000 Intl Units Cap) 1 cap PO QWK [facility] Ciprofloxacin (Cipro 400mg/200ml Dsw) 400 mg in 200 mls @ 200 mls/hr IVPB Q12 [facility] PRN Reason: Protocol Last Admin: 11/25/17 21:28 Dose: 200 mls/hr Metronidazole (Flagyl 500mg/100ml Ns) 100 mls @ 100 mls/hr IVPB Q8 [facility] PRN Reason: Protocol Last Admin: 11/26/17 00:52 Dose: 100 mls/hr Lactated Ringer's (Lactated Ringer's) 1,000 mls @ 125 mls/hr IV .Q8H [facility] Stop: 11/26/17 11:00 Last Admin: 11/25/17 21:35 Dose: Not Given Insulin Human Lispro (Humalog) 0 units SC ACHS [facility] PRN Reason: Protocol Last Admin: 11/25/17 22:30 Dose: Not Given Lactobacillus Acidophilus (Bacid Acidophilus) 1 cap PO BID [facility] Last Admin: 11/25/17 16:47 Dose: 1 cap Latanoprost (Xalatan Opht) 1 drop OU HS [facility] Last Admin: 11/25/17 21:29 Dose: 1 drop Levothyroxine Sodium (Synthroid) 50 mcg PO DAILY@0630 [facility] Last Admin: 11/26/17 06:54 Dose: 50 mcg Lisinopril (Zestril) 10 mg PO BID [facility] Last Admin: 11/25/17 16:41 Dose: 10 mg Metoprolol Succinate (Toprol Xl) 50 mg PO DAILY [facility] Last Admin: 11/25/17 09:14 Dose: 50 mg Morphine Sulfate (Morphine) 2 mg IVP Q4 PRN PRN Reason: Pain, moderate (4-7) Last Admin: 11/25/17 16:51 Dose: 2 mg Ondansetron HCl (Zofran Inj) 8 mg IVP Q8 [facility] Last Admin: 11/26/17 00:51 Dose: 8 mg Timolol Maleate (Timoptic 0.5% Oph Soln) 1 drop OU BID [facility] Last Admin: 11/25/17 16:32 Dose: 1 drop Vancomycin HCl (Vancocin (Oral/Rectal Use)) 125 mg PO Q8 [facility] PRN Reason: Protocol Zolpidem Tartrate (Ambien) 5 mg PO [facility] Last Admin: 11/25/17 21:31 Dose: 5 mg - Labs Labs: 11/24/17 06:05 11/26/17 05:30 PT 11.9 Seconds (9.8-13.1) 11/25/17 08:36 INR 1.1 11/25/17 08:36 Attending/Attestation - Attestation I have personally seen and examined this patient.: Yes I have fully participated in the care of the patient.: Yes I have reviewed all pertinent clinical information, including history, physical exam and plan: Yes Notes (Text): 11/26/17 08:33 I have seen and examined patient with GI fellow. No acute events overnight. He continues to endorse abdominal pain and had multiple loose non-bloody bowel movements overnight, nearly 5 episodes. He also reports ongoing diffuse abdominal pain but denies nausea, vomiting, fever/chills. Tolerating PO liquids but has lack of appetite. Diarrhea, colitis Sepsis, bacteremia - prostatitis? DM / HTN - Liquid diet as tolerated - Continue with antibiotic therapy, given ongoing abdominal pain and continued loose bowel movements would add PO Vancomycin for empiric coverage though stool c-difficile - x 2 - Follow up remainder of stool studies - Continue with supportive care, IVF hydration, anti-emetic therapy PRN - Will continue to monitor patient clinical course
[2017-11-26 08:16] LABS: ALB/GLOB RATIO 1.1 (1.0-2.1); ALBUMIN 3.6 g/dL (3.5-5.0); ALT/SGPT 41 U/L (21-72); AST/SGOT 51 U/L (17-59); BLOOD UREA NITROGEN 16 mg/dl (9-20); CALCIUM 8.3 mg/dL (8.4-10.2); GFR NON-AFRICAN AMERICAN > 60
[2017-11-26] MEDS: Lactobacillus Acidophilus 500 MU Cap PO SCH ×2 (09:27→17:36)
[2017-11-26] MEDS: Metoprolol Succinate 50 mg XL Tab PO SCH (09:30)
[2017-11-26] MEDS: Dorzolamide 2% Ophth Soln OU SCH ×2 (09:31→17:36)
[2017-11-26] MEDS: Insulin Lispro (humaLOG) 100 Units/ml Inj SC SCH ×4 (09:40→22:17)
[2017-11-26] MEDS: Lactated Ringer's 1,000 ML IV SCH (09:41)
[2017-11-26] MEDS: Vancomycin 500 mg (Oral/Rectal USE) PO SCH ×2 (09:42→17:37)
[2017-11-26] MEDS: Potassium CL 10 MEQ/50 ML 50 ML IVPB SCH ×4 (11:07→19:00)
--- NOTE | 2017-11-26 15:47 | CP.PCM.PN ---
Subjective - Date & Time of Evaluation Date of Evaluation: 11/26/17 Time of Evaluation: 10:00 - Subjective Subjective: Patient seen and examined. Still having diarrhea about 7 times today with watery greenish stool and vomiting twice. Objective - Vital Signs/Intake and Output Vital Signs (last 24 hours): Temp Pulse Resp BP Pulse Ox 97.7 F 60 20 117/71 98 11/26/17 10:00 11/26/17 10:00 11/26/17 10:00 11/26/17 10:00 11/26/17 10:09 - Medications Medications: Current Medications Acetaminophen (Tylenol 325mg Tab) 650 mg PO Q6 PRN PRN Reason: Fever >100.4 F Last Admin: 11/24/17 06:22 Dose: 650 mg Dorzolamide HCl (Trusopt) 1 drop OU BID [facility] Last Admin: 11/26/17 09:31 Dose: 1 drop Ergocalciferol (Drisdol 50,000 Intl Units Cap) 1 cap PO QWK [facility] Ciprofloxacin (Cipro 400mg/200ml Dsw) 400 mg in 200 mls @ 200 mls/hr IVPB Q12 [facility] PRN Reason: Protocol Last Admin: 11/25/17 21:28 Dose: 200 mls/hr Metronidazole (Flagyl 500mg/100ml Ns) 100 mls @ 100 mls/hr IVPB Q8 [facility] PRN Reason: Protocol Last Admin: 11/26/17 09:28 Dose: 100 mls/hr Insulin Human Lispro (Humalog) 0 units SC ACHS [facility] PRN Reason: Protocol Last Admin: 11/26/17 12:04 Dose: Not Given Lactobacillus Acidophilus (Bacid Acidophilus) 1 cap PO BID [facility] Last Admin: 11/26/17 09:27 Dose: 1 cap Latanoprost (Xalatan Opht) 1 drop OU HS [facility] Last Admin: 11/25/17 21:29 Dose: 1 drop Levothyroxine Sodium (Synthroid) 50 mcg PO DAILY@0630 [facility] Last Admin: 11/26/17 06:54 Dose: 50 mcg Lisinopril (Zestril) 10 mg PO BID [facility] Last Admin: 11/26/17 09:32 Dose: 10 mg Metoprolol Succinate (Toprol Xl) 50 mg PO DAILY [facility] Last Admin: 11/26/17 09:30 Dose: 50 mg Morphine Sulfate (Morphine) 2 mg IVP Q4 PRN PRN Reason: Pain, moderate (4-7) Last Admin: 11/26/17 10:12 Dose: 2 mg Ondansetron HCl (Zofran Inj) 8 mg IVP Q8 [facility] Last Admin: 11/26/17 09:33 Dose: 8 mg Timolol Maleate (Timoptic 0.5% Ophth Soln) 1 drop OU BID [facility] Last Admin: 11/26/17 09:30 Dose: 1 drop Vancomycin HCl (Vancocin (Oral/Rectal Use)) 125 mg PO Q8 [facility] PRN Reason: Protocol Last Admin: 11/26/17 09:42 Dose: 125 mg Zolpidem Tartrate (Ambien) 5 mg PO HS [facility] Last Admin: 11/25/17 21:31 Dose: 5 mg - Labs Labs: 11/24/17 06:05 11/26/17 05:30 PT 11.9 Seconds (9.8-13.1) 11/25/17 08:36 INR 1.1 11/25/17 08:36 - Constitutional Appears: No Acute Distress - Head Exam Head Exam: ATRAUMATIC - Eye Exam Eye Exam: absent: Scleral icterus - ENT Exam ENT Exam: Mucous Membranes Moist - Neck Exam Neck Exam: absent: Meningismus - Respiratory Exam Respiratory Exam: absent: Rales, Rhonchi, Wheezes, Respiratory Distress - Cardiovascular Exam Cardiovascular Exam: REGULAR RHYTHM, +S1, +S2 - GI/Abdominal Exam GI & Abdominal Exam: Soft. absent: Tenderness - Rectal Exam Rectal Exam: Deferred - Neurological Exam Neurological Exam: Alert, Oriented x3 - Psychiatric Exam Psychiatric exam: Normal Affect - Skin Skin Exam: Dry, Intact Assessment and Plan - Assessment and Plan (Free Text) Assessment: 72 yo male with history of HTN, HLD, Hypothyroid and DM2 admitted because of LLQ pain associated with diarrhea, nausea, vomiting and fever/chills. 1. Colitis continue to have diarrhea (7X) and vomting (2X) C dif antigen and toxin: negative blood culture: Salmonella Group C continue IV Cipro and Flagyl and PO Vancomycin GI consult with Dr Lewis appreciated will add Rocephin 1gm IV daily for Salmonella and DC Flagyl ID consult with Dr Her 2. Hypokalemia depleted because of loss from vomiting and diarrhea 4 runs of KCl 10meq IV BMP in am 3. HTN BP controlled continue Lisinopril and Metoprolol 4. Hypothyroid continue Synthroid TSH 5. DM2 BS relatively controlled accuchek ACHS with low Lispro coverage
[2017-11-26] MEDS: Ciprofloxacin 400mg/200ml D5W 400 MG/200 ML BAG IVPB SCH ×2 (15:59→21:33)
[2017-11-26] MEDS ORDERED: Potassium CL 10 MEQ/50 ML 50 ML IVPB SCH (16:00)
--- NOTE | 2017-11-26 17:19 | CP.PCM.PN ---
Subjective - Date & Time of Evaluation Date of Evaluation: 11/26/17 Time of Evaluation: 17:18 - Subjective Subjective: I D NOTE DISCUSSED c HOSPITALIST CHART REVIEWED WOULD CONTINUE CIPRO,ADD ROCEPHEN AWAIT CULTURES Objective - Vital Signs/Intake and Output Vital Signs (last 24 hours): Temp Pulse Resp BP Pulse Ox 98.6 F 51 L 18 136/77 100 11/26/17 16:15 11/26/17 16:15 11/26/17 16:15 11/26/17 16:15 11/26/17 16:15 - Medications Medications: Current Medications Acetaminophen (Tylenol 325mg Tab) 650 mg PO Q6 PRN PRN Reason: Fever >100.4 F Last Admin: 11/24/17 06:22 Dose: 650 mg Dorzolamide HCl (Trusopt) 1 drop OU BID [facility] Last Admin: 11/26/17 09:31 Dose: 1 drop Ergocalciferol (Drisdol 50,000 Intl Units Cap) 1 cap PO QWK [facility] Ciprofloxacin (Cipro 400mg/200ml Dsw) 400 mg in 200 mls @ 200 mls/hr IVPB Q12 [facility] PRN Reason: Protocol Last Admin: 11/26/17 15:59 Dose: 200 mls/hr Ceftriaxone Sodium 1 gm/ (Sodium Chloride) 100 mls @ 100 mls/hr IVPB DAILY [facility] PRN Reason: Protocol Insulin Human Lispro (Humalog) 0 units SC ACHS [facility] PRN Reason: Protocol Last Admin: 11/26/17 12:04 Dose: Not Given Lactobacillus Acidophilus (Bacid Acidophilus) 1 cap PO BID [facility] Last Admin: 11/26/17 09:27 Dose: 1 cap Latanoprost (Xalatan Opht) 1 drop OU HS [facility] Last Admin: 11/25/17 21:29 Dose: 1 drop Levothyroxine Sodium (Synthroid) 50 mcg PO DAILY@0630 [facility] Last Admin: 11/26/17 06:54 Dose: 50 mcg Lisinopril (Zestril) 10 mg PO BID [facility] Last Admin: 11/26/17 09:32 Dose: 10 mg Metoprolol Succinate (Toprol Xl) 50 mg PO DAILY [facility] Last Admin: 11/26/17 09:30 Dose: 50 mg Morphine Sulfate (Morphine) 2 mg IVP Q4 PRN PRN Reason: Pain, moderate (4-7) Last Admin: 11/26/17 10:12 Dose: 2 mg Ondansetron HCl (Zofran Inj) 8 mg IVP Q8 [facility] Last Admin: 11/26/17 09:33 Dose: 8 mg Timolol Maleate (Timoptic 0.5% Ophth Soln) 1 drop OU BID [facility] Last Admin: 11/26/17 09:30 Dose: 1 drop Vancomycin HCl (Vancocin (Oral/Rectal Use)) 125 mg PO Q8 [facility] PRN Reason: Protocol Last Admin: 11/26/17 09:42 Dose: 125 mg Zolpidem Tartrate (Ambien) 5 mg PO HS [facility] Last Admin: 11/25/17 21:31 Dose: 5 mg - Labs Labs: 11/24/17 06:05 11/26/17 05:30 PT 11.9 Seconds (9.8-13.1) 11/25/17 08:36 INR 1.1 11/25/17 08:36
[2017-11-26] MEDS: Latanoprost 0.005% Opht SOUTION OU SCH (21:33)
[2017-11-27] MEDS: Vancomycin 500 mg (Oral/Rectal USE) PO SCH ×2 (00:10→09:32)
[2017-11-27] MEDS: Levothyroxine 50 MCG TAB PO SCH (05:52)
[2017-11-27] MEDS: Insulin Lispro (humaLOG) 100 Units/ml Inj SC SCH ×4 (07:06→22:11)
[2017-11-27 07:53] LABS: BLOOD UREA NITROGEN 10 mg/dl (9-20); CALCIUM 8.8 mg/dL (8.4-10.2); GFR NON-AFRICAN AMERICAN > 60
[2017-11-27] MEDS ORDERED: Potassium Chloride 20 mEq ER Tab PO ONE (09:13)
[2017-11-27] MEDS: Metoprolol Succinate 50 mg XL Tab PO SCH (09:30)
[2017-11-27] MEDS: Lactobacillus Acidophilus 500 MU Cap PO SCH ×2 (09:30→16:45)
[2017-11-27] MEDS: Dorzolamide 2% Ophth Soln OU SCH ×2 (09:36→16:49)
[2017-11-27] MEDS: Ciprofloxacin 400mg/200ml D5W 400 MG/200 ML BAG IVPB SCH ×2 (09:38→21:41)
--- NOTE | 2017-11-27 11:13 | CP.PCM.PN ---
Subjective - Date & Time of Evaluation Date of Evaluation: 11/27/17 Time of Evaluation: 11:06 - Subjective Subjective: Patient seen and examined, resting comfortably in bed. No acute events overnight. His frequency of diarrhea has decreased, he had two loose green colored bowel movements this morning. His abdominal pain has also improved compared to yesterday. He denies nausea, vomiting, fever/chills. Tolerating PO liquids without difficulty. Review of vitals from today are normal. 12 point review of systems performed, negative aside from mentioned above. Objective - Vital Signs/Intake and Output Vital Signs (last 24 hours): Temp Pulse Resp BP Pulse Ox 98.0 F 59 L 20 138/82 100 11/27/17 08:23 11/27/17 08:23 11/27/17 08:23 11/27/17 09:30 11/27/17 08:23 - Medications Medications: Current Medications Acetaminophen (Tylenol 325mg Tab) 650 mg PO Q6 PRN PRN Reason: Fever >100.4 F Last Admin: 11/24/17 06:22 Dose: 650 mg Acetaminophen (Tylenol 325mg Tab) 650 mg PO Q6 PRN PRN Reason: Pain, Mild (1-3) Last Admin: 11/26/17 22:14 Dose: 650 mg Dorzolamide HCl (Trusopt) 1 drop OU BID [facility] Last Admin: 11/27/17 09:36 Dose: 1 drop Ergocalciferol (Drisdol 50,000 Intl Units Cap) 1 cap PO QWK [facility] Ciprofloxacin (Cipro 400mg/200ml Dsw) 400 mg in 200 mls @ 200 mls/hr IVPB Q12 [facility] PRN Reason: Protocol Last Admin: 11/27/17 09:38 Dose: 200 mls/hr Ceftriaxone Sodium 1 gm/ (Sodium Chloride) 100 mls @ 100 mls/hr IVPB DAILY [facility] PRN Reason: Protocol Insulin Human Lispro (Humalog) 0 units SC ACHS [facility] PRN Reason: Protocol Last Admin: 11/27/17 07:06 Dose: Not Given Lactobacillus Acidophilus (Bacid Acidophilus) 1 cap PO BID [facility] Last Admin: 11/27/17 09:30 Dose: 1 cap Latanoprost (Xalatan Opht) 1 drop OU HS [facility] Last Admin: 11/26/17 21:33 Dose: 1 drop Levothyroxine Sodium (Synthroid) 50 mcg PO DAILY@0630 [facility] Last Admin: 11/27/17 05:52 Dose: 50 mcg Lisinopril (Zestril) 10 mg PO BID [facility] Last Admin: 11/27/17 09:30 Dose: 10 mg Metoprolol Succinate (Toprol Xl) 50 mg PO DAILY [facility] Last Admin: 11/27/17 09:30 Dose: 50 mg Morphine Sulfate (Morphine) 2 mg IVP Q4 PRN PRN Reason: Pain, moderate (4-7) Last Admin: 11/26/17 10:12 Dose: 2 mg Ondansetron HCl (Zofran Inj) 8 mg IVP Q8 [facility] Last Admin: 11/27/17 09:46 Dose: 8 mg Timolol Maleate (Timoptic 0.5% Oph Soln) 1 drop OU BID [facility] Last Admin: 11/27/17 09:36 Dose: 1 drop Zolpidem Tartrate (Ambien) 5 mg PO HS [facility] Last Admin: 11/26/17 21:32 Dose: 5 mg - Labs Labs: 11/24/17 06:05 11/27/17 05:30 PT 11.9 Seconds (9.8-13.1) 11/25/17 08:36 INR 1.1 11/25/17 08:36 - Constitutional Appears: Non-toxic, No Acute Distress - Head Exam Head Exam: NORMAL INSPECTION - Eye Exam Eye Exam: EOMI, Normal appearance - ENT Exam ENT Exam: Mucous Membranes Moist - Respiratory Exam Respiratory Exam: Clear to Ausculation Bilateral - Cardiovascular Exam Cardiovascular Exam: +S1, +S2 - GI/Abdominal Exam GI & Abdominal Exam: Soft, Tenderness, Normal Bowel Sounds Additional comments: mild epigastric tenderness to palpation, no rebound/guarding - Extremities Exam Extremities Exam: Normal Inspection - Skin Skin Exam: Dry, Intact, Normal Color, Warm Assessment and Plan - Assessment and Plan (Free Text) Assessment: Diarrhea, colitis Sepsis - salmonella bacteremia DM/HTN Plan: - Liquid diet as tolerated - Continue with antibiotic therapy as per ID - though sensitivities reviewed, organism sensitive to cipro, can likely discontinue remainder of antibiotics which may contribute to ongoing loose bowel movements - Continue with supportive care - Will continue to monitor patient clinical course
--- NOTE | 2017-11-27 12:34 | CP.PCM.PN ---
Subjective - Date & Time of Evaluation Date of Evaluation: 11/27/17 Time of Evaluation: 10:00 - Subjective Subjective: Patient was seen and examined at bedside. He is still c/o ongoing abdominal pain without nausea. Still having loose stools although his frequency has decreased since admission. Denies fevers, chills, abdominal pain. Objective - Vital Signs/Intake and Output Vital Signs (last 24 hours): Temp Pulse Resp BP Pulse Ox 98.0 F 59 L 20 138/82 100 11/27/17 08:23 11/27/17 08:23 11/27/17 08:23 11/27/17 09:30 11/27/17 08:23 - Medications Medications: Current Medications Acetaminophen (Tylenol 325mg Tab) 650 mg PO Q6 PRN PRN Reason: Fever >100.4 F Last Admin: 11/24/17 06:22 Dose: 650 mg Acetaminophen (Tylenol 325mg Tab) 650 mg PO Q6 PRN PRN Reason: Pain, Mild (1-3) Last Admin: 11/26/17 22:14 Dose: 650 mg Dorzolamide HCl (Trusopt) 1 drop OU BID [facility] Last Admin: 11/27/17 09:36 Dose: 1 drop Ergocalciferol (Drisdol 50,000 Intl Units Cap) 1 cap PO QWK [facility] Ciprofloxacin (Cipro 400mg/200ml Dsw) 400 mg in 200 mls @ 200 mls/hr IVPB Q12 [facility] PRN Reason: Protocol Last Admin: 11/27/17 09:38 Dose: 200 mls/hr Ceftriaxone Sodium 1 gm/ (Sodium Chloride) 100 mls @ 100 mls/hr IVPB DAILY [facility] PRN Reason: Protocol Insulin Human Lispro (Humalog) 0 units SC ACHS [facility] PRN Reason: Protocol Last Admin: 11/27/17 07:06 Dose: Not Given Lactobacillus Acidophilus (Bacid Acidophilus) 1 cap PO BID [facility] Last Admin: 11/27/17 09:30 Dose: 1 cap Latanoprost (Xalatan Opht) 1 drop OU HS [facility] Last Admin: 11/26/17 21:33 Dose: 1 drop Levothyroxine Sodium (Synthroid) 50 mcg PO DAILY@0630 [facility] Last Admin: 11/27/17 05:52 Dose: 50 mcg Lisinopril (Zestril) 10 mg PO BID [facility] Last Admin: 11/27/17 09:30 Dose: 10 mg Metoprolol Succinate (Toprol Xl) 50 mg PO DAILY [facility] Last Admin: 11/27/17 09:30 Dose: 50 mg Morphine Sulfate (Morphine) 2 mg IVP Q4 PRN PRN Reason: Pain, moderate (4-7) Last Admin: 11/26/17 10:12 Dose: 2 mg Ondansetron HCl (Zofran Inj) 8 mg IVP Q8 [facility] Last Admin: 11/27/17 09:46 Dose: 8 mg Timolol Maleate (Timoptic 0.5% Ophth Soln) 1 drop OU BID [facility] Last Admin: 11/27/17 09:36 Dose: 1 drop Zolpidem Tartrate (Ambien) 5 mg PO HS [facility] Last Admin: 11/26/17 21:32 Dose: 5 mg - Labs Labs: 11/24/17 06:05 11/27/17 05:30 PT 11.9 Seconds (9.8-13.1) 11/25/17 08:36 INR 1.1 11/25/17 08:36 - Additional Findings Additional findings: Physical exam: Constitutional- cooperative, awake, alert Head- NCAT, PERRL Eye- PERRL, EOMI ENT- normal exam, MMM. Neck- normal inspection, supple, no JVD Respiratory- CTAB, no wheezes rales rhonchi Cardiovascular- RRR, +S1, +S2 no MRG GI/Abdominal- normal bowel sounds, + tenderness to palpation of the lower abdomen bilaterally, soft, no mass, no hsm Skin- warm, dry Extremities Exam- normal capillary refill, normal inspection Neurological Exam- alert, awake, oriented Psych- normal mood, normal affect Assessment and Plan - Assessment and Plan (Free Text) Plan: 72 yo male with history of HTN, HLD, Hypothyroid and DM2 admitted because of LLQ pain associated with diarrhea, nausea, vomiting and fever/chills. 1. Colitis continue to have diarrhea, however nausea now resolved C dif antigen and toxin: negative blood culture: Salmonella Group C sensitive to Cipro Dr. Liang on consult for GI, recommends continuing liquid diet as tolerated As per ID, continue Cipro and Rocephin, however may be able to d/c Rocephin soon if ok with ID. D/C PO Vancomycin and IV Flaygl 2. Hypokalemia- improved depleted because of loss from vomiting and diarrhea 4 runs of KCl 10meq IV K improved to 3.1 Will give 40 meq of Kdur today Check BMP in AM 3. HTN BP controlled continue Lisinopril and Metoprolol 4. Hypothyroid continue Synthroid TSH 5. DM2 BS relatively controlled accuchek ACHS with low Lispro coverage 6. DVT prophylaxis - Added Heparin sq q 12 hours for dvt prophylaxis
[2017-11-27] MEDS: Latanoprost 0.005% Opht SOUTION OU SCH (21:45)
[2017-11-28 00:01] VITALS: RESP 20
[2017-11-28] MEDS: Levothyroxine 50 MCG TAB PO SCH (06:00)
[2017-11-28 06:18] LABS: HEMOGLOBIN 15.8 g/dL (12.0-18.0); MEAN CELL VOLUME 89.6 fl (80.0-94.0); MEAN CORPUSCULAR HEMOGLOBIN 30.9 pg (27.0-31.0); MEAN CORPUSCULAR HGB CONC 34.5 g/dL (33.0-37.0); RBC 5.11 Mil/uL (4.40-5.90); RED CELL DISTRIBUTION WIDTH 14.3 % (11.5-14.5); WHITE BLOOD COUNT 6.9 K/uL (4.8-10.8)
[2017-11-28 06:35] LABS: BLOOD UREA NITROGEN 6 mg/dl (9-20); CALCIUM 8.7 mg/dL (8.4-10.2); GFR NON-AFRICAN AMERICAN > 60
[2017-11-28] MEDS: Insulin Lispro (humaLOG) 100 Units/ml Inj SC SCH ×3 (07:48→16:35)
[2017-11-28 08:12] VITALS: O2SAT 99
[2017-11-28] MEDS: Ciprofloxacin 400mg/200ml D5W 400 MG/200 ML BAG IVPB SCH (09:14)
[2017-11-28] MEDS: Lactobacillus Acidophilus 500 MU Cap PO SCH ×2 (09:14→16:35)
--- NOTE | 2017-11-28 09:14 | CP.PCM.PN ---
Subjective - Date & Time of Evaluation Date of Evaluation: 11/28/17 Time of Evaluation: 09:00 - Subjective Subjective: Cyra: [id number] Pt is a 72 yo M with a pmh of HTN, HLD, hypothyroidism, DM2 admitted for diarrhea, melena and abdominal pain. Patient seen at bedside this morning states that he has mild diffuse abdominal pain and had 2 episodes of green diarrhea last night, denies hematochezia. Patient also had nausea and vomitting and was given Zofran and feels better. States he has an appetite and has been on a liquid diet. Denies SOB or chest pain. Objective - Vital Signs/Intake and Output Vital Signs (last 24 hours): Temp Pulse Resp BP Pulse Ox 98.2 F 68 20 123/84 99 11/28/17 08:11 11/28/17 08:11 11/28/17 08:11 11/28/17 08:11 11/28/17 08:11 - Medications Medications: Current Medications Acetaminophen (Tylenol 325mg Tab) 650 mg PO Q6 PRN PRN Reason: Fever >100.4 F Last Admin: 11/24/17 06:22 Dose: 650 mg Acetaminophen (Tylenol 325mg Tab) 650 mg PO Q6 PRN PRN Reason: Pain, Mild (1-3) Last Admin: 11/26/17 22:14 Dose: 650 mg Dorzolamide HCl (Trusopt) 1 drop OU BID [facility] Last Admin: 11/27/17 16:49 Dose: 1 drop Ergocalciferol (Drisdol 50,000 Intl Units Cap) 1 cap PO QWK [facility] Heparin Sodium (Porcine) (Heparin) 5,000 units SC Q12 [facility] PRN Reason: Protocol Last Admin: 11/27/17 21:40 Dose: 5,000 units Ciprofloxacin (Cipro 400mg/200ml Dsw) 400 mg in 200 mls @ 200 mls/hr IVPB Q12 [facility] PRN Reason: Protocol Last Admin: 11/27/17 21:41 Dose: 200 mls/hr Ceftriaxone Sodium 1 gm/ (Sodium Chloride) 100 mls @ 100 mls/hr IVPB DAILY [facility] PRN Reason: Protocol Insulin Human Lispro (Humalog) 0 units SC ACHS [facility] PRN Reason: Protocol Last Admin: 11/28/17 07:48 Dose: Not Given Lactobacillus Acidophilus (Bacid Acidophilus) 1 cap PO BID [facility] Last Admin: 11/27/17 16:45 Dose: 1 cap Latanoprost (Xalatan Opht) 1 drop OU [facility] Last Admin: 11/27/17 21:45 Dose: 1 drop Levothyroxine Sodium (Synthroid) 50 mcg PO DAILY@0630 [facility] Last Admin: 11/28/17 06:00 Dose: 50 mcg Lisinopril (Zestril) 10 mg PO BID [facility] Last Admin: 11/27/17 16:49 Dose: 10 mg Metoprolol Succinate (Toprol Xl) 50 mg PO DAILY [facility] Last Admin: 11/27/17 09:30 Dose: 50 mg Morphine Sulfate (Morphine) 2 mg IVP Q4 PRN PRN Reason: Pain, moderate (4-7) Last Admin: 11/26/17 10:12 Dose: 2 mg Ondansetron HCl (Zofran Inj) 8 mg IVP Q8 [facility] Last Admin: 11/28/17 00:52 Dose: Not Given Timolol Maleate (Timoptic 0.5% Oph Soln) 1 drop OU BID [facility] Last Admin: 11/27/17 16:48 Dose: 1 drop Zolpidem Tartrate (Ambien) 5 mg PO [facility] Last Admin: 11/27/17 21:40 Dose: 5 mg - Labs Labs: 11/28/17 05:55 11/28/17 05:55 PT 11.9 Seconds (9.8-13.1) 11/25/17 08:36 INR 1.1 11/25/17 08:36 - Constitutional Appears: Well, Non-toxic, No Acute Distress - Head Exam Head Exam: ATRAUMATIC, NORMAL INSPECTION, NORMOCEPHALIC - Eye Exam Eye Exam: EOMI, Normal appearance, PERRL - ENT Exam ENT Exam: Mucous Membranes Moist - Neck Exam Neck Exam: Full ROM - Respiratory Exam Respiratory Exam: Clear to Ausculation Bilateral, NORMAL BREATHING PATTERN - Cardiovascular Exam Cardiovascular Exam: RRR, +S1, +S2 - GI/Abdominal Exam GI & Abdominal Exam: Soft, Normal Bowel Sounds Additional comments: Mild tenderness to palpation - Extremities Exam Extremities Exam: Normal Inspection - Neurological Exam Neurological Exam: Alert, Awake, Oriented x3 - Psychiatric Exam Psychiatric exam: Normal Mood Assessment and Plan - Assessment and Plan (Free Text) Assessment: 72 yo M with a PMH HTN, HLD, hypothyroidism, DM2 admitted for diarrhea, melena and abdominal pain. 1. Colitis Continue Abx per ID (Rocephin and Cipro)- D/C today tolerated PO intake, on Cipro 500mg Q12hr Stool Cx + for Salmonella Blood Cx Salmonella Group C sensitive to Cipro- now blood culture negative @ 24 hrs C. diff antigen and toxin: negative Zofran given- Nausea Dr. Liang on consulted -GI, Dr. Her consulted-ID 2. Hypokalemia- improved 4 runs of KCl 10meq IV K improved to 3.5 today 40 meq of Kdur Continue to check BMP 3. HTN BP controlled Continue Lisinopril and Metoprolol 4. Hypothyroid Continue Synthroid TSH as outpt 5. DM2 Accucheck 123 Lispro ACHS
[2017-11-28] MEDS: Metoprolol Succinate 50 mg XL Tab PO SCH (09:15)
[2017-11-28] MEDS: Dorzolamide 2% Ophth Soln OU SCH ×2 (09:16→16:36)
--- NOTE | 2017-11-28 11:16 | CP.PCM.PN ---
Subjective - Date & Time of Evaluation Date of Evaluation: 11/28/17 Time of Evaluation: 11:13 - Subjective Subjective: GI Fellow PGY4, progress note. Patient seen and examined at bedside. No acute overnight events. Patient states his abdominal pain and diarrhea is improving. Only 2 episodes of diarrhea today. Again denies travel or undercooked food. 5pt ROS completed and negative except for above. Objective - Vital Signs/Intake and Output Vital Signs (last 24 hours): Temp Pulse Resp BP Pulse Ox 98.2 F 68 20 123/84 99 11/28/17 08:11 11/28/17 09:16 11/28/17 08:11 11/28/17 09:16 11/28/17 08:11 - Medications Medications: Current Medications Acetaminophen (Tylenol 325mg Tab) 650 mg PO Q6 PRN PRN Reason: Fever >100.4 F Last Admin: 11/24/17 06:22 Dose: 650 mg Acetaminophen (Tylenol 325mg Tab) 650 mg PO Q6 PRN PRN Reason: Pain, Mild (1-3) Last Admin: 11/26/17 22:14 Dose: 650 mg Dorzolamide HCl (Trusopt) 1 drop OU BID [facility] Last Admin: 11/28/17 09:16 Dose: 1 drop Ergocalciferol (Drisdol 50,000 Intl Units Cap) 1 cap PO QWK [facility] Heparin Sodium (Porcine) (Heparin) 5,000 units SC Q12 [facility] PRN Reason: Protocol Last Admin: 11/28/17 09:15 Dose: 5,000 units Ciprofloxacin (Cipro 400mg/200ml Dsw) 400 mg in 200 mls @ 200 mls/hr IVPB Q12 [facility] PRN Reason: Protocol Last Admin: 11/28/17 09:14 Dose: 200 mls/hr Ceftriaxone Sodium 1 gm/ (Sodium Chloride) 100 mls @ 100 mls/hr IVPB DAILY [facility] PRN Reason: Protocol Last Admin: 11/28/17 10:27 Dose: 100 mls/hr Insulin Human Lispro (Humalog) 0 units SC ACHS [facility] PRN Reason: Protocol Last Admin: 11/28/17 07:48 Dose: Not Given Lactobacillus Acidophilus (Bacid Acidophilus) 1 cap PO BID [facility] Last Admin: 11/28/17 09:14 Dose: 1 cap Latanoprost (Xalatan Opht) 1 drop OU [facility] Last Admin: 11/27/17 21:45 Dose: 1 drop Levothyroxine Sodium (Synthroid) 50 mcg PO DAILY@0630 [facility] Last Admin: 11/28/17 06:00 Dose: 50 mcg Lisinopril (Zestril) 10 mg PO BID [facility] Last Admin: 11/28/17 09:16 Dose: 10 mg Metoprolol Succinate (Toprol Xl) 50 mg PO DAILY [facility] Last Admin: 11/28/17 09:15 Dose: 50 mg Morphine Sulfate (Morphine) 2 mg IVP Q4 PRN PRN Reason: Pain, moderate (4-7) Last Admin: 11/26/17 10:12 Dose: 2 mg Ondansetron HCl (Zofran Inj) 8 mg IVP Q8 [facility] Last Admin: 11/28/17 09:16 Dose: 8 mg Timolol Maleate (Timoptic 0.5% Ophth Soln) 1 drop OU BID [facility] Last Admin: 11/28/17 09:15 Dose: 1 drop Zolpidem Tartrate (Ambien) 5 mg PO [facility] Last Admin: 11/27/17 21:40 Dose: 5 mg - Labs Labs: 11/28/17 05:55 11/28/17 05:55 PT 11.9 Seconds (9.8-13.1) 11/25/17 08:36 INR 1.1 11/25/17 08:36 - Constitutional Appears: Well, No Acute Distress - Head Exam Head Exam: ATRAUMATIC, NORMAL INSPECTION - Eye Exam Eye Exam: EOMI, Normal appearance - ENT Exam ENT Exam: Mucous Membranes Moist - Respiratory Exam Respiratory Exam: Clear to Ausculation Bilateral, NORMAL BREATHING PATTERN. absent: Wheezes - Cardiovascular Exam Cardiovascular Exam: REGULAR RHYTHM, +S1, +S2 - GI/Abdominal Exam GI & Abdominal Exam: Soft, Normal Bowel Sounds. absent: Tenderness - Extremities Exam Extremities Exam: Full ROM, Normal Inspection - Neurological Exam Neurological Exam: Alert, Awake, Oriented x3 - Psychiatric Exam Psychiatric exam: Normal Affect, Normal Mood - Skin Skin Exam: Dry, Normal Color Assessment and Plan - Assessment and Plan (Free Text) Assessment: 72M with acute diarrhea, abdominal pain, vomiting and fever. #Abdominal pain #Acute Diarrhea #Vomiting #Sepsis with salmonella Group C #DM #HTN #BPH PLAN: -Continue IV abx, cipro, for salmonella. -Recommend antiemetics for nausea, Zofran. -Recommend to advance diet to bland, diabetic diet. -No plan for endoscopic procedures at this time -Patient educated about avoiding undercooked food
--- NOTE | 2017-11-28 15:21 | CP.PCM.DIS ---
Provider - Provider Date of Admission: 11/23/17 16:56 Attending physician: Teresa Dhaliwal DO Primary care physician: Dr. Muñoz Time Spent in preparation of Discharge (in minutes): 15 Hospital Course - Lab Results Lab Results: Micro Results 11/25/17 06:10 Stool Ova and Parasite Concentrate Exam - Final 11/24/17 17:58 Stool Stool Culture - Final Salmonella Group C 11/26/17 17:35 Blood Blood Culture - Preliminary NO GROWTH AFTER 24 HOURS 11/23/17 12:40 Blood Blood Culture - Final Salmonella Group C 11/23/17 12:40 Blood Gram Stain - Final 11/24/17 06:26 Urine,Clean Catch Urine Culture - Final No Growth (<1,000 CFU/ML) Most Recent Lab Values WBC 6.9 K/uL (4.8-10.8) 11/28/17 05:55 RBC 5.11 Mil/uL (4.40-5.90) 11/28/17 05:55 Hgb 15.8 g/dL (12.0-18.0) 11/28/17 05:55 Hct 45.8 % (35.0-51.0) 11/28/17 05:55 MCV 89.6 fl (80.0-94.0) 11/28/17 05:55 MCH 30.9 pg (27.0-31.0) 11/28/17 05:55 MCHC 34.5 g/dL (33.0-37.0) 11/28/17 05:55 RDW 14.3 % (11.5-14.5) 11/28/17 05:55 Plt Count 144 K/uL (130-400) 11/28/17 05:55 MPV 9.4 fl (7.2-11.7) 11/24/17 06:05 Neut % (Auto) 84.1 % (50.0-75.0) H 11/24/17 06:05 Lymph % (Auto) 9.6 % (20.0-40.0) L 11/24/17 06:05 [place] % (Auto) 6.1 % (0.0-10.0) 11/24/17 06:05 Eos % (Auto) 0.0 % (0.0-4.0) 11/24/17 06:05 Baso % (Auto) 0.2 % (0.0-2.0) 11/24/17 06:05 Neut # (Auto) 5.3 K/uL (1.8-7.0) 11/24/17 06:05 Lymph # (Auto) 0.6 K/uL (1.0-4.3) L 11/24/17 06:05 [place] # (Auto) 0.4 K/uL (0.0-0.8) 11/24/17 06:05 Eos # (Auto) 0.0 K/uL (0.0-0.7) 11/24/17 06:05 Baso # (Auto) 0.0 K/uL (0.0-0.2) 11/24/17 06:05 Neutrophils % (Manual) 71 % (42-75) 11/24/17 06:05 Band Neutrophils % 3 % (0-2) H 11/24/17 06:05 Lymphocytes % (Manual) 12 % (20-50) L 11/24/17 06:05 Reactive Lymphs % 6 % (0-0) H 11/24/17 06:05 Monocytes % (Manual) 8 % (0-10) 11/24/17 06:05 Platelet Estimate Slightly decreased (NORMAL) L 11/24/17 06:05 Large Platelets Present 11/24/17 06:05 Anisocytosis (manual) Slight 11/24/17 06:05 PT 11.9 Seconds (9.8-13.1) 11/25/17 08:36 INR 1.1 11/25/17 08:36 Sodium 137 mmol/l (132-148) 11/28/17 05:55 Potassium 3.5 MMOL/L (3.6-5.0) L 11/28/17 05:55 Chloride 101 mmol/L (98-107) 11/28/17 05:55 Carbon Dioxide 28 mmol/L (22-30) 11/28/17 05:55 Anion Gap 12 (10-20) 11/28/17 05:55 BUN 6 mg/dl (9-20) L 11/28/17 05:55 Creatinine 0.9 mg/dl (0.8-1.5) 11/28/17 05:55 Est GFR ( Amer) > 60 11/28/17 05:55 Est GFR (Non-Af Amer) > 60 11/28/17 05:55 POC Glucose (mg/dL) 123 mg/dL (65-110) H 11/28/17 10:57 Random Glucose 115 mg/dL (75-110) H 11/28/17 05:55 Calcium 8.7 mg/dL (8.4-10.2) 11/28/17 05:55 Phosphorus 2.7 mg/dl (2.5-4.5) 11/26/17 05:30 Magnesium 2.2 MG/DL (1.6-2.3) 11/26/17 05:30 Total Bilirubin 1.4 mg/dl (0.2-1.3) H 11/26/17 05:30 AST 51 U/L (17-59) 11/26/17 05:30 ALT 41 U/L (21-72) 11/26/17 05:30 Alkaline Phosphatase 45 U/L (38-126) 11/26/17 05:30 Total Protein 6.9 G/DL (6.3-8.2) 11/26/17 05:30 Albumin 3.6 g/dL (3.5-5.0) 11/26/17 05:30 Globulin 3.3 gm/dL (2.2-3.9) 11/26/17 05:30 Albumin/Globulin Ratio 1.1 (1.0-2.1) 11/26/17 05:30 Prostate Specific Ag 7.70 ng/ML (0.00-4.0) H 11/24/17 16:19 TSH 3rd Generation 5.68 mIU/ML (0.46-4.68) H 11/25/17 15:34 Urine Color Nuvia (YELLOW) 11/24/17 06:26 Urine Clarity Slighty-cloudy (Clear) 11/24/17 06:26 Urine pH 5.0 (5.0-8.0) 11/24/17 06:26 Ur Specific [place] 1.043 (1.003-1.030) H 11/24/17 06:26 Urine Protein 100 mg/dL (NEGATIVE) 11/24/17 06:26 Urine Glucose (UA) Neg mg/dL (Normal) 11/24/17 06:26 Urine Ketones Negative mg/dL (NEGATIVE) 11/24/17 06:26 Urine Blood Negative (NEGATIVE) 11/24/17 06:26 Urine Nitrate Negative (NEGATIVE) 11/24/17 06:26 Urine Bilirubin Negative (NEGATIVE) 11/24/17 06:26 Urine Urobilinogen 0.2-1.0 mg/dL (0.2-1.0) 11/24/17 06:26 Ur Leukocyte Esterase Neg [place]/uL (Negative) 11/24/17 06:26 Urine RBC (Auto) 3 /hpf (0-3) 11/24/17 06:26 Urine Microscopic WBC 3 /hpf (0-5) 11/24/17 06:26 Ur Squamous Epith Cells < 1 /hpf (0-5) 11/24/17 06:26 C. difficile Ag & Toxin Negative (NEGATIVE) 11/27/17 12:45 - Hospital Course Hospital Course: Pt is a 72 yo M with a Pmhx of HTN, HLD, hypothyroidism, DM2 admitted to the ED on 11/23 for 4 days of sharp LLQ abdominal pain, diarrhea, melena, nausea, and yellow vomitus. Patient was found to have colitis with prostatitis on CT of abdomen and pelvis then started on Cipro and Flagyl. C Diff antigen and toxin negative, stool O &P negative. Blood and stool cultures were positive for Salmonella, Patient was then started on Rochephin, ID was consulted Dr. Her, GI was consulted Dr. Lewis. Patient seen at bedside this morning states that he has mild diffuse abdominal pain and improved to only 2 episodes of green diarrhea last night, denies hematochezia. Patient also had nausea and vomiting and was given Zofran. States he has an appetite and patient is tolerating oral intake. Denies SOB or chest pain. Patient is afebrile, WBC 6.9 , blood culture no growth @24hr, hemodynamically stable, he can be D/C today on PO Cipro 500mg Q12hr. 1. Colitis Continue Abx per ID (Rocephin and Cipro) Stool Cx + for Salmonella Blood Cx Salmonella Group C sensitive to Cipro- now blood culture negative @ 24 hrs C diff antigen and toxin: negative Zofran given- Nausea Dr. Liang on consulted -GI, Dr. Her consulted-ID 2. Hypokalemia- improved 4 runs of KCl 10meq IV K improved to 3.5 today 40 meq of Kdur Continue to check BMP 3. HTN BP controlled Continue Lisinopril and Metoprolol 4. Hypothyroid Continue Synthroid TSH as outpt 5. DM2 Accucheck 123 Lispro ACHS - Date & Time of H&P Date of H&P: 11/23/17 Time of H&P: 17:00 Discharge Exam - Head Exam Head Exam: ATRAUMATIC, NORMAL INSPECTION, NORMOCEPHALIC - Eye Exam Eye Exam: EOMI, Normal appearance, PERRL - ENT Exam ENT Exam: Mucous Membranes Moist - Respiratory Exam Respiratory Exam: Clear to PA & Lateral, NORMAL BREATHING PATTERN - Cardiovascular Exam Cardiovascular Exam: RRR, +S1, +S2 - GI/Abdominal Exam GI & Abdominal Exam: Normal Bowel Sounds, Soft Additional comments: Mild tenderness to palpation - Extremities Exam Extremities exam: normal inspection - Neurological Exam Neurological exam: Alert, Oriented x3 - Psychiatric Exam Psychiatric exam: Normal Mood Discharge Plan - Discharge Medications Prescriptions: Ciprofloxacin HCl [Cipro] 500 mg PO Q12 #14 tablet - Follow Up Plan Condition: STABLE Disposition: HOME/ ROUTINE Patient education suggested?: Yes Instructions: Diarrhea in Adolescents and Adults, Bloody Stools, Adult (DC) Additional Instructions: hacer clarence con blackburn primario dentro 1 semana Referrals: Lorne Brown MD [Family Provider] - Mima Lewis MD [Medical Doctor] - Juarez Her MD [Medical Doctor] -
[2017-11-28 15:46] VITALS: TEMP 97.9
[2017-11-28 16:38] VITALS: BP 115/68; PULSE 69
--- NOTE | 2017-11-28 18:14 | CARD ---
APPROVED REPORT Date of service: 11/26/2017 <Conclusion> Sinus bradycardia Nonspecific T wave abnormality Prolonged QT Abnormal ECG
== END 2017-11-28 18:13 | disposition home or self-care (01) | DRG 872 ==
LOC: H.ER 11:31 → H.ERHOLD 16:56 → H.MEDSURG1 20:43
PROVIDERS: ADMIT Student in an Organized Health Care Education/Training Program; ATTEND Student in an Organized Health Care Education/Training Program
PROC: 3E0234Z Introduction of Serum, Toxoid and Vaccine into Muscle, Percutaneous Approach (ICD-10-PCS; principal; 2017-11-24)
DX: A02.1 Salmonella sepsis (principal); A02.0 Salmonella enteritis; E87.6 Hypokalemia; I10 Essential (primary) hypertension; E78.00 Pure hypercholesterolemia, unspecified; E78.5 Hyperlipidemia, unspecified; E11.9 Type 2 diabetes mellitus without complications; K76.0 Fatty (change of) liver, not elsewhere classified; E03.9 Hypothyroidism, unspecified; Z23 Encounter for immunization; J45.909 Unspecified asthma, uncomplicated; K29.70 Gastritis, unspecified, without bleeding; R30.0 Dysuria; N40.0 Benign prostatic hyperplasia without lower urinary tract symptoms; N41.9 Inflammatory disease of prostate, unspecified